=== PATIENT | female | born 1990 | race Two or more races ===

== ENCOUNTER → 2018-03-02 | Outpatient (CLI) | payer OTHER | END | disposition home or self-care (01) | LOC: DIB 13:56 | DX: Z02.9 Encounter for administrative examinations, unspecified (principal) ==

== ENCOUNTER 2018-03-30 12:06 | Inpatient (IN) | payer OTHER ==
[2018-03-30 14:08] LABS: ADD MAN DIFF? NO
[2018-03-30 14:11] LABS: ABNORMAL IP MESSAGE 1; BASOPHILS % 0.5 % (0.0-2.0); EOSINOPHILS # 0.2 10^3/ul (0.0-0.5); EOSINOPHILS % 1.8 % (0.0-7.0); HEMATOCRIT 41.6 % (37.0-47.0); HEMOGLOBIN 11.4 g/dl (12.0-16.0); LYMPHOCYTES # 2.2 10^3/ul (0.8-2.9); LYMPHOCYTES % 25.7 % (15.0-51.0); MEAN CORPUSCULAR HEMOGLOBIN 20.2 pg (29.0-33.0); MEAN CORPUSCULAR HGB CONC 27.4 g/dl (32.0-37.0); MEAN CORPUSCULAR VOLUME 73.6 fl (82.0-101.0); MEAN PLATELET VOLUME 9.8 fl (7.4-10.4); MONOCYTE # 0.4 10^3/ul (0.3-0.9); MONOCYTES % 4.1 % (0.0-11.0); NEUTROPHIL # 5.9 10^3/ul (1.6-7.5); NEUTROPHILS % 67.7 % (39.0-77.0); PLATELET COUNT 273 10^3/UL (140-415); RED BLOOD COUNT 5.65 10^6/ul (4.20-5.40); RED CELL DISTRIBUTION WIDTH 19.9 % (11.5-14.5)
[2018-03-30 14:11] LABS: WHITE BLOOD COUNT 8.7 10^3/ul (4.8-10.8)
[2018-03-30 14:18] LABS: POSITIVE DIFF @See below
[2018-03-30 14:27] LABS: ANION GAP 10 (5-13); BLOOD UREA NITROGEN 19 mg/dl (7-20); CALCIUM 9.4 mg/dl (8.4-10.2); CARBON DIOXIDE 26 mmol/L (21-31); CHLORIDE 103 mmol/L (97-110); CREATININE 0.67 mg/dl (0.44-1.00); Estimated GFR > 60 mL/min (>60); GLUCOSE 94 mg/dl (70-220); POTASSIUM 3.8 mmol/L (3.5-5.1); SODIUM 139 mmol/L (135-144)
[2018-03-30 14:31] LABS: AADO2 Arterial 36.7 mmHg (7.0-24.0); Arterial Base Excess 0 mmol/L (-3.0-3); Arterial Blood Gas Oxygen Sat 92.1 mmHG (95.0-98.0); Arterial COHb 0.7 % (0.0-3.0); Arterial Fraction of Oxyhgb 91.4 % (93.0-99.0); Arterial HCO3 24.3 mmol/L (22.0-26.0); Arterial MetHb 0.1 % (0.0-1.5); Arterial pCO2 38.5 mmhg (35-45); MODE ROOM AIR; Site LB
[2018-03-30 14:34] LABS: INR 0.98; PROTIME 13.1 Sec (11.9-14.9)
[2018-03-30 14:35] LABS: PARTIAL THROMBOPLASTIN TIME 27.6 Sec (23.0-35.0)
[2018-03-30 14:39] LABS: TROPONIN-I < 0.012 ng/ml (0.000-0.120)
[2018-03-30] MEDS: IOHEXOL 100 ML (15:04)
[2018-03-30] MEDS: SOD CHLORIDE 0.9% 100 ML (15:05)
[2018-03-30] MEDS ORDERED: ONDANSETRON 4 MG INJ IV ×2 (16:00→16:30)
[2018-03-30] MEDS ORDERED: ACETAMINOPHEN 325 MG TAB PO ×2 (16:00→16:30)
[2018-03-30] MEDS ORDERED: NACL 0.9% 3 ML SYG IV (16:30)
[2018-03-30] MEDS ORDERED: GLUCOSE GEL 15 GRAM TUBE BUCCAL (17:00)
[2018-03-30] MEDS ORDERED: GLUCAGON 1 MG INJ IM (17:00)
[2018-03-30] MEDS ORDERED: GLUCOSE GEL 15 GRAM TUBE PO ×2 (17:00)
[2018-03-30] MEDS ORDERED: DEXTROSE 50% 50 ML SYRINGE IV ×2 (17:00)
[2018-03-30] MEDS: APIXABAN 5 MG TABLET PO (17:15)
[2018-03-30] MEDS: INSULIN ASPART [NOVOLOG] 3 ML PEN SC ×3 (18:00→21:00)
[2018-03-30 19:24] LABS: LACTIC ACID 1.1 mmol/L (0.5-2.0)
[2018-03-30] MEDS: INSULIN GLARGINE [LANTus] (100 UNITS/ML) SYG SC (21:09)
[2018-03-31] MEDS: ACCU-CHEK XX (02:00)
[2018-03-31 05:58] LABS: ADD MAN DIFF? NO
[2018-03-31] MEDS: PANTOPRAZOLE (EC) 40 MG TAB PO (06:16)
[2018-03-31 06:22] LABS: ALANINE AMINOTRANSFERASE 32 IU/L (13-69); ALBUMIN 3.5 g/dl (3.3-4.9); ALBUMIN/GLOBULIN RATIO 1.34; ALKALINE PHOSPHATASE 59 IU/L (42-121); ANION GAP 8 (5-13); ASPARTATE AMINO TRANSFERASE 37 IU/L (15-46); BILIRUBIN,INDIRECT 0.6 mg/dl (0-1.1); BILIRUBIN,TOTAL 0.6 mg/dl (0.2-1.3); BLOOD UREA NITROGEN 17 mg/dl (7-20); CALCIUM 9.1 mg/dl (8.4-10.2); CARBON DIOXIDE 25 mmol/L (21-31); CHLORIDE 106 mmol/L (97-110); CREATININE 0.63 mg/dl (0.44-1.00); Estimated GFR > 60 mL/min (>60); GLUCOSE 78 mg/dl (70-220); MAGNESIUM 2.1 mg/dl (1.7-2.5); PHOSPHORUS 4.7 mg/dl (2.5-4.9); POTASSIUM 4.7 mmol/L (3.5-5.1); SODIUM 139 mmol/L (135-144); TOTAL PROTEIN 6.1 g/dl (6.1-8.1)
[2018-03-31] MEDS: INSULIN ASPART [NOVOLOG] 3 ML PEN SC ×6 (08:00→17:19)
[2018-03-31] MEDS: APIXABAN 5 MG TABLET PO ×2 (08:41→17:30)
[2018-03-31] MEDS: INFLUENZA VIRUS VACCINE 0.5 ML (DISPENSING) IM* (08:44)
[2018-03-31] MEDS: INSULIN GLARGINE [LANTus] (100 UNITS/ML) SYG SC (08:49)
[2018-03-31 11:00] LABS: WHITE BLOOD COUNT 7.9 10^3/ul (4.8-10.8)
[2018-03-31 11:00] LABS: ABNORMAL IP MESSAGE 1; BASOPHILS % 0.4 % (0.0-2.0); EOSINOPHILS # 0.2 10^3/ul (0.0-0.5); EOSINOPHILS % 2.9 % (0.0-7.0); HEMATOCRIT 39.5 % (37.0-47.0); HEMOGLOBIN 10.6 g/dl (12.0-16.0); LYMPHOCYTES # 1.9 10^3/ul (0.8-2.9); LYMPHOCYTES % 23.9 % (15.0-51.0); MEAN CORPUSCULAR HEMOGLOBIN 20.3 pg (29.0-33.0); MEAN CORPUSCULAR HGB CONC 26.8 g/dl (32.0-37.0); MEAN CORPUSCULAR VOLUME 75.8 fl (82.0-101.0); MEAN PLATELET VOLUME 10.5 fl (7.4-10.4); MONOCYTE # 0.4 10^3/ul (0.3-0.9); MONOCYTES % 5.6 % (0.0-11.0); NEUTROPHIL # 5.3 10^3/ul (1.6-7.5); NEUTROPHILS % 67.1 % (39.0-77.0); PLATELET COUNT 285 10^3/UL (140-415); RED BLOOD COUNT 5.21 10^6/ul (4.20-5.40); RED CELL DISTRIBUTION WIDTH 18.6 % (11.5-14.5)
[2018-03-31 11:01] LABS: POSITIVE DIFF @See below
[2018-03-31 11:52] LABS: HEMOGLOBIN A1C 5.5 % (0-5.9)
== END 2018-03-31 17:52 | disposition home or self-care (01) | DRG 176 ==
LOC: E/R 12:06 → 6WM 15:57
DX: I26.99 Other pulmonary embolism without acute cor pulmonale (principal); Z68.43 Body mass index [BMI] 50.0-59.9, adult; Z86.718 Personal history of other venous thrombosis and embolism; E11.9 Type 2 diabetes mellitus without complications; G47.33 Obstructive sleep apnea (adult) (pediatric); E66.01 Morbid (severe) obesity due to excess calories; F20.9 Schizophrenia, unspecified; R09.02 Hypoxemia; R06.89 Other abnormalities of breathing; Z99.81 Dependence on supplemental oxygen
CPT/HCPCS: 36415; 36600; 71045; 71275; 80048; 80053; 82803; 82962; 83036; 83605; 83735; 84100; 84484; 84703; 85025; 85610; 85730; 90686; 93005; 93306; 99291-25

== ENCOUNTER 2018-04-03 17:36 | Emergency (ER) | payer OTHER ==
[2018-04-03 17:57] LABS: ADD MAN DIFF? NO
[2018-04-03 18:00] LABS: ABNORMAL IP MESSAGE 1; BASOPHILS % 0.5 % (0.0-2.0); EOSINOPHILS # 0.2 10^3/ul (0.0-0.5); EOSINOPHILS % 2.5 % (0.0-7.0); HEMATOCRIT 42.6 % (37.0-47.0); HEMOGLOBIN 11.7 g/dl (12.0-16.0); LYMPHOCYTES # 2.5 10^3/ul (0.8-2.9); LYMPHOCYTES % 29.4 % (15.0-51.0); MEAN CORPUSCULAR HEMOGLOBIN 20.5 pg (29.0-33.0); MEAN CORPUSCULAR HGB CONC 27.5 g/dl (32.0-37.0); MEAN CORPUSCULAR VOLUME 74.5 fl (82.0-101.0); MEAN PLATELET VOLUME 9.8 fl (7.4-10.4); MONOCYTE # 0.4 10^3/ul (0.3-0.9); MONOCYTES % 5.1 % (0.0-11.0); NEUTROPHIL # 5.3 10^3/ul (1.6-7.5); NEUTROPHILS % 62.1 % (39.0-77.0); PLATELET COUNT 370 10^3/UL (140-415); RED BLOOD COUNT 5.72 10^6/ul (4.20-5.40); RED CELL DISTRIBUTION WIDTH 19.8 % (11.5-14.5)
[2018-04-03 18:00] LABS: WHITE BLOOD COUNT 8.6 10^3/ul (4.8-10.8)
[2018-04-03 18:02] LABS: POSITIVE DIFF @See below
[2018-04-03 18:18] LABS: ALANINE AMINOTRANSFERASE 28 IU/L (13-69); ALBUMIN 4.2 g/dl (3.3-4.9); ALKALINE PHOSPHATASE 70 IU/L (42-121); ASPARTATE AMINO TRANSFERASE 35 IU/L (15-46); BILIRUBIN,INDIRECT 0.7 mg/dl (0-1.1); BILIRUBIN,TOTAL 0.7 mg/dl (0.2-1.3); BLOOD UREA NITROGEN 16 mg/dl (7-20); CALCIUM 9.5 mg/dl (8.4-10.2); CARBON DIOXIDE 27 mmol/L (21-31); CHLORIDE 102 mmol/L (97-110); CREATININE 0.79 mg/dl (0.44-1.00); Estimated GFR > 60 mL/min (>60); GLUCOSE 100 mg/dl (70-220); LIPASE 92 U/L (23-300); TOTAL PROTEIN 7.2 g/dl (6.1-8.1)
[2018-04-03 18:19] LABS: ANION GAP 9 (5-13); POTASSIUM 4.1 mmol/L (3.5-5.1); SODIUM 138 mmol/L (135-144)
[2018-04-03 18:24] LABS: INR 1.32; PARTIAL THROMBOPLASTIN TIME 29.8 Sec (23.0-35.0); PROTIME 16.6 Sec (11.9-14.9); PT RATIO 1.3
[2018-04-03 18:29] LABS: TROPONIN-I < 0.012 ng/ml (0.000-0.120)
[2018-04-03] MEDS: SOD CHLORIDE 0.9% 500 ML IV (19:37)
[2018-04-03] MEDS: IOHEXOL 350MG/ML 50 ML BTL (20:02)
[2018-04-03] MEDS: SOD CHLORIDE 0.9% 100 ML (20:02)
[2018-04-03] MEDS: IOHEXOL 100 ML (20:02)
[2018-04-03 21:18] LABS: URINE BLOOD (Dip) POC Negative (NEGATIVE); URINE GLUCOSE (Dip) POC Negative (NEGATIVE); URINE KETONES (Dip) POC Trace (NEGATIVE); URINE LEUKOCYTE EST (Dip) POC Negative (NEGATIVE); URINE NITRITE (Dip) POC Negative (NEGATIVE); URINE TOTAL PROTEIN POC 2+ (NEGATIVE)
[2018-04-03 21:39] LABS: ADD UMIC YES; UR ASCORBIC ACID 40 mg/dL (NEGATIVE); UR BILIRUBIN (Dip) NEGATIVE (NEGATIVE); UR BLOOD (Dip) NEGATIVE (NEGATIVE); UR CLARITY SLIGHTLY CLOUDY (CLEAR); UR COLOR AMBER (YELLOW); UR GLUCOSE (Dip) NEGATIVE (NEGATIVE); UR KETONES (Dip) TRACE mg/dL (NEGATIVE); UR LEUKOCYTE ESTERASE (Dip) TRACE Leu/ul (NEGATIVE); UR MUCUS MANY /HPF (NONE SEEN); UR NITRITE (Dip) NEGATIVE (NEGATIVE); UR RBC 2 /HPF (0-5); UR SPECIFIC GRAVITY (Dip) 1.045 (1.003-1.030); UR SQUAMOUS EPITHELIAL CELL FEW /HPF (FEW); UR TOTAL PROTEIN (Dip) 1+ mg/dl (NEGATIVE); UR UROBILINOGEN (Dip) 1+ mg/dL (NEGATIVE); UR WBC 4 /HPF (0-5)
[2018-04-03 22:02] LABS: BARBITURATES NEGATIVE (NEGATIVE); BENZODIAZEPINES NEGATIVE (NEGATIVE); CANNABINOIDS POSITIVE (NEGATIVE); COCAINE NEGATIVE (NEGATIVE); OPIATES NEGATIVE (NEGATIVE)
[2018-04-03 22:04] LABS: AMPHETAMINE/METHAMPHETAMINE POSITIVE (NEGATIVE)
== END 2018-04-03 21:56 | disposition home or self-care (01) ==
LOC: E/R 17:36
DX: I26.09 Other pulmonary embolism with acute cor pulmonale (principal); I82.433 Acute embolism and thrombosis of popliteal vein, bilateral; F15.10 Other stimulant abuse, uncomplicated; E66.01 Morbid (severe) obesity due to excess calories; E11.9 Type 2 diabetes mellitus without complications; J45.909 Unspecified asthma, uncomplicated; Z68.43 Body mass index [BMI] 50.0-59.9, adult; Z87.891 Personal history of nicotine dependence; Z79.4 Long term (current) use of insulin
CPT/HCPCS: 36415; 71275; 80053; 80307; 81001; 81003; 83690; 84484; 84703; 85025; 85610; 85730; 93005; 99285-25

== ENCOUNTER 2018-06-18 05:26 | Emergency (ER) | payer OTHER ==
[2018-06-18 06:42] LABS: URINE BLOOD (Dip) POC Negative (NEGATIVE); URINE GLUCOSE (Dip) POC Negative (NEGATIVE); URINE KETONES (Dip) POC Trace (NEGATIVE); URINE LEUKOCYTE EST (Dip) POC Trace (NEGATIVE); URINE NITRITE (Dip) POC Negative (NEGATIVE); URINE TOTAL PROTEIN POC Trace (NEGATIVE)
== END 2018-06-18 07:51 | disposition home or self-care (01) ==
LOC: FTE 07:51
DX: N39.0 Urinary tract infection, site not specified (principal); E11.9 Type 2 diabetes mellitus without complications; J45.909 Unspecified asthma, uncomplicated; F17.210 Nicotine dependence, cigarettes, uncomplicated; Z79.4 Long term (current) use of insulin
CPT/HCPCS: 81003; 81025; 84703; 99283